=== PATIENT | female | born 1965 ===

== ENCOUNTER 2025-04-12 08:15 | Day surgery (SDC) | payer OTHER ==
[2025-04-12] MEDS ORDERED: DIPHENHYDRAMINE HCL 50 MG/ML VIAL 1ML IV ONE (10:15)
[2025-04-12] MEDS ORDERED: fentaNYL CITRATE 50 MCG/ML AMPUL IV PUSH ONE (10:15)
[2025-04-12] MEDS ORDERED: MIDAZOLAM HCL 2 MG/2 ML VIAL IV ONE (10:15)
[2025-04-12] MEDS ORDERED: PANTOPRAZOLE SODIUM 40 MG/VIAL VIAL ONE (13:05)
== END 2025-04-12 12:30 | disposition home or self-care (01) ==
LOC: CIR.AMB 08:15
PROVIDERS: ATTEND Internal Medicine
DX: K63.5 Polyp of colon (principal); K52.9 Noninfective gastroenteritis and colitis, unspecified